=== PATIENT | male | born 1975 | race American Indian/Alaskan Native ===

== ENCOUNTER 2024-06-23 05:49 | Emergency (ER) | payer MEDICAID, SELFPAY ==
[2024-06-23 05:49] VITALS: BMI 38.0
[2024-06-23 05:56] VITALS: BP 172/95; PULSE 83; RESP 18; TEMP 37.1; O2SAT 96
--- NOTE | 2024-06-23 06:21 | XR_ITS ---
Examination: Lumbar spine 3 views Technique one AP lateral coned lateral lower lumbar spine 3 views 7): June 23, 2024 0624 hours INDICATIONS: Onset back pain today. FINDINGS: Adequate alignment lumbar vertebral bodies on the lateral view No lumbar fracture Moderate to advanced degenerative disc disease L5-S1 IMPRESSION: Moderate to advanced degenerative disc disease L5-S1
[2024-06-23] MEDS: HYDROcodone/APAP 5/325 TABLET 1 TAB PO (06:37)
[2024-06-23] MEDS: CYCLObenzaPRINE 5 MG TABLET PO (06:37)
--- NOTE | 2024-06-23 07:52 | PD.EDLOWEX ---
Lower Extremity Injury RME/HPI General Chief Complaint: Extremity Injury, Lower Stated Complaint: RIGHT LEG PAIN X1DAY Time Seen by Provider: 06/23/24 06:07 Source: patient Arrival date/time: 06/23/24 0600 This is a 49-year-old male with end-stage renal failure who presents to the emergency department with complaints of right sciatic type pain radiating down to his right leg. He reports yesterday he was doing normal chores at home and felt a pinch in his back and today woke up with pain right lower hip radiating down his leg. Patient did not attempt any interventions or take any OTC medications prior to ED visit. Patient denies any other associated symptoms or aggravating factors. No modifying factors, no radiation, no migration. Patient reports he had to have his dialysis today however missed it due to his pain. Denies any bowel or bladder dysfunction Mode of arrival: ambulatory Limitations: no limitations Related Data Home Medications ?Medication ?Instructions ?Recorded ?Confirmed flash glucose sensor (FreeStyle 04/09/23 04/09/23 Joselyn 2 Sensor kit) insulin syringe-needle U-100 0.3 04/09/23 04/09/23 mL 31 gauge x 15/64 (Droplet Insulin Syringe) semaglutide 0.25 mg or 0.5 mg (2 mg subcut 04/09/23 mg/1.5 mL) subcutaneous pen injector Previous Rx's ?Medication ?Instructions ?Recorded atorvastatin 80 mg tablet 80 mg PO QPM #30 tabs 04/13/23 hydrocodone 7.5 mg-acetaminophen 1 tab PO Q8H PRN pain #10 tabs 06/23/24 325 mg tablet Allergies Allergy/AdvReac Type Severity Reaction Status Date / Time No Known Allergies Allergy Verified 12/19/23 00:39 Review of Systems Review of Systems Systems Reviewed: All systems reviewed, normal except as documented Narrative Review of Systems: Gen: No fever, no chills, no weight loss EYES: No discharge, no visual changes, no pain HEENT: No ear pain, no congestion, no sore throat PULM: No shortness of breath, no cough, no congestion CV: No chest pain, no dyspnea on exertion, no palpitations GI: No nausea, no vomiting, no diarrhea, no pain, no constipation : No frequency, no urgency, no dysuria Musc/skel: No joint pain, back pain radiating to glue right leg Skin: No rash Psyc: No hallucinations, no depression Heme/Lymph: No easy bleeding or bruising tendencies Neuro: No weakness, no headache ED Exam Narrative Physical exam: 49-year-old male appears to be in pain General Limitations: Present no limitations General appearance: Present alert and in no apparent distress Head Head exam: Present atraumatic Eye Eye exam: Present normal appearance, PERRL and EOMI ENT ENT exam: Present normal exam, normal oropharynx and mucous membranes moist Neck Neck exam: Present normal inspection, full ROM and trachea midline Chest Chest inspection: Present normal inspection and symmetric chest wall rise Respiratory Respiratory exam: Present normal lung sounds bilaterally Cardiovascular Cardiovascular exam: Present regular rate, normal rhythm and normal heart sounds Abdominal Exam Abdominal exam: Present soft, normal bowel sounds and other (Negative CVA tenderness); Absent distention or tenderness Extremities Exam Extremities exam: Present normal inspection and full ROM Back Exam Back exam: Present full ROM, muscle spasm, paraspinal tenderness and sciatic notch tenderness (R); Absent CVA tenderness (R) or CVA tenderness (L) Neurological Exam Neurological exam: Present alert, oriented X3 and CN II-XII intact Psychiatric Psychiatric exam: Present normal affect and normal mood Skin Skin exam: Present warm, dry, intact and normal color Course Quality Measures none Orders Category Date Time Status XR hip RT w pelvis 2-3V Stat Exams 06/23/24 09:04 Completed XR lumbar spine 2-3V Stat Exams 06/23/24 06:21 Completed CYCLObenzaPRINE [Flexeril] Med 06/23/24 06:23 Discontinued 5 mg PO X1 ONE HYDROcodone*/APAP 5/325 [Left Hand 5/325] Med 06/23/24 06:22 Discontinued 1 tab PO X1 ONE Lidocaine 5% Patch Med 06/23/24 08:21 Discontinued 1 patch TOP X1 ONE MethylPREDNISolone.* [SoluMEDROL Inj] Med 06/23/24 08:09 Discontinued 125 mg IM X1 ONE Vital Signs Vital signs: Vital Signs Temperature 98.8 F 06/23/24 05:56 Pulse Rate 83 06/23/24 05:56 Respiratory Rate 18 06/23/24 05:56 Blood Pressure 172/95 H 06/23/24 05:56 Pulse Oximetry (%) 96 06/23/24 05:56 Oxygen Delivery Method Room Air 06/23/24 05:56 Extremity Injury, Lower MDM Narrative MDM Narrative:: This is a 49-year-old male who presents to the emergency department what appears as a lumbar back strain. Patient appears to be mild distress due to pain, cocktail medication was ordered . And lumbar x-ray. Lumbar x-ray did demonstrate advanced degenerative disc disease. HIp xray- right hip bursitis. No fever, weakness, abdominal pain, saddle anesthesia, bowel/bladder incontinence noted. No hx of IVDA. Gait and sensation intact. No signs of emergent pathology at this time. Low suspicion for emergent etiology such as epidural abscess or spinal cord compression/cauda equina. Strictly advised patient that he will need to follow-up with his PCP most likely physical therapy or MRI. Strictly advised to return to the emergency department if there is any worsening symptoms or change in condition as discussed Advised to continue his dialysis center session today. Patient data External records reviewed:: [facility] previous records Clinical information provided by:: patient Social determinants that could affect healthcare access:: none Patient has the following chronic illnesses:: Hemodialysis hypertension diabetes How is presenting disease/condition affected by chronic disease/condition?: no chronic disease Evaluation data The following diagnostics were reviewed and interpreted by me:: radiology exam(s) Lab and/or radiology exams considered but not ordered:: Considered other imaging. Interpretation Summary: Examination: Lumbar spine 3 views Technique one AP lateral coned lateral lower lumbar spine 3 views 7): June 23, 2024 0624 hours INDICATIONS: Onset back pain today. FINDINGS: Adequate alignment lumbar vertebral bodies on the lateral view No lumbar fracture Moderate to advanced degenerative disc disease L5-S1 IMPRESSION: Moderate to advanced degenerative disc disease L5-S1 Examination:Right hip AP, lateral, AP pelvis 3 views Technique: Hip AP lateral, AP pelvis, 3 views Exam date and time:June 23, 2024 0918 hrs. Indications: Onset right hip pain today Findings: Mild bilateral hip osteoarthritis No right hip fracture or dislocation Greater trochanteric bursitis right hip Bones of the pelvis left hip intact Impression: Mild bilateral hip osteoarthritis Greater trochanteric bursitis right hip. Medications / Prescriptions Medications or Prescriptions considered but not ordered:: No Medication administrations:: Medication Administration History Discontinued Medications Hydrocodone Bitart/Acetaminophen (Hydrocodone/Apap 5/325 Tablet) 1 tab PO X1 ONE Stop: 06/23/24 06:23 Last Admin: 06/23/24 06:37 Dose: 1 tab Documented By: VERONICA Cyclobenzaprine HCl (Cyclobenzaprine 5 Mg Tablet) 5 mg PO X1 ONE Stop: 06/23/24 06:24 Last Admin: 06/23/24 06:37 Dose: 5 mg Documented By: VERONICA Lidocaine (Lidocaine 5% 1 Patch) 1 patch TOP X1 ONE Stop: 06/23/24 08:22 Last Admin: 06/23/24 08:40 Dose: 1 patch Documented By: HANNAH Methylprednisolone Sodium Succinate (Methylprednisolone Sod Succ 62.5 Mg/Ml 2ml Vial) 125 mg IM X1 ONE Stop: 06/23/24 08:10 Last Admin: 06/23/24 08:14 Dose: 125 mg Documented By: HANNAH All medications administered and effective Consultations Consultation(s) initiated? (list below): No Diagnosis Extremity Injury, Lower Differential Diagnosis: other (Hip fracture, lumbar strain, sciatica, lumbar radiculopathy) Most likely diagnosis given after review of the tests above:: Lumbar radiculopathy Admission Indicated Admission indicated?: not indicated Admission Request Was there a request for admission?: No Disposition Plan Disposition Plan: Discharge Discharge Attestation Discharge Attestation: The patient and all family members were given an opportunity to ask questions and understood the discharge instructions. Discharge instructions specifically effects, indications for sooner follow up or return to the emergency department, and the expected course of current diagnosis. Patient condition: Stable Discharge Plan Plan Patient Disposition: HOME (Self Care) Prescriptions/Referrals Prescriptions/Med Rec: New hydrocodone-acetaminophen 7.5-325 mg tablet 1 tab PO Q8H MDD 3 PRN (Reason: pain) Qty: 10 0RF No Action (DME) insulin syringe-needle U-100 [Droplet Insulin Syringe] 0.3 mL 31 gauge x 15/64 syringe Patient Comments: use WITH LANTUS (DME) FreeStyle Joselyn 2 Sensor Kit Patient Comments: POINT OF CARE BLOOD GLUCOSE 4 TIMES A DAY semaglutide 0.25 mg or 0.5 mg(2 mg/1.5 mL) pen injector SUBCUT Patient Comments: inject 0.25 milligrams subcutaneously every week atorvastatin 80 mg tablet 80 mg PO QPM Qty: 30 0RF Referrals: Clint([facility]),Tan, LIVESTOCK BROKER [Primary Care Provider] - In 1 week Problem List Clinical Impression: Degenerative disc disease, lumbar, Greater trochanteric bursitis of right hip Patient/Caregiver Discharge Instructions Discharge Activity: activity as tolerated Education Materials: Understanding Trochanteric Bursitis, ED Bursitis, ED Degenerative Disk Disease Additional Instructions: You have been diagnosed with hip bursitis, which is the inflammation of the bursa?a small fluid-filled sac that cushions and reduces friction in your hip joint. X-ray also demonstrates mild degenerative disc disease. You will need to follow-up with your primary doctor 2 days. Please keep your appointments with dialysis per I did send a couple Left Hand's for pain relief. Might need physical therapy, MRI for further evaluation. Print Language: Moroccan Stand Alone Forms: Bridgette Award Info., Patient Portal Info Letter PA/LIVESTOCK BROKER Supervising Physician PA/SHANNA Supervising Physician: Dr. Perez
[2024-06-23] MEDS: MethylPREDNISolone SOD SUCC 62.5 MG/ML 2ML VIAL 125 MG IM (08:14)
[2024-06-23] MEDS: LIDOCAINE 5% 1 PATCH TOP (08:40)
--- NOTE | 2024-06-23 09:04 | XR_ITS ---
Examination:Right hip AP, lateral, AP pelvis 3 views Technique: Hip AP lateral, AP pelvis, 3 views Exam date and time:June 23, 2024 0918 hrs. Indications: Onset right hip pain today Findings: Mild bilateral hip osteoarthritis No right hip fracture or dislocation Greater trochanteric bursitis right hip Bones of the pelvis left hip intact Impression: Mild bilateral hip osteoarthritis Greater trochanteric bursitis right hip.
== END 2024-06-23 10:18 | disposition home or self-care (01) ==
PROVIDERS: Emergency Provider Emergency Medicine; PCP Nurse Practitioner Family
DX: M51.369 Other intervertebral disc degeneration, lumbar region without mention of lumbar back pain or lower extremity pain (principal); M51.379 Other intervertebral disc degeneration, lumbosacral region without mention of lumbar back pain or lower extremity pain; M70.61 Trochanteric bursitis, right hip
CPT/HCPCS: 72100; 73502; 96372; 99283; J2919; Z7610; A9270

== ENCOUNTER 2024-07-27 12:47 | Emergency (ER) | payer MEDICAID, SELFPAY ==
[2024-07-27 12:50] VITALS: PULSE 98; RESP 16; O2SAT 100
[2024-07-27 12:56] VITALS: BP 146/97; PULSE 93; RESP 17; TEMP 36.6; O2SAT 97
[2024-07-27 12:57] VITALS: BMI 32.5
--- NOTE | 2024-07-27 13:07 | EKG_ITS ---
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
--- NOTE | 2024-07-27 13:07 | XR_ITS ---
Examination: AP chest single view Technique one AP portable upright chest single view Exam date and time: July 27, 2024 1311 hrs. Comparison April 07, 2023 Indications: Onset chest pain today. Findings: Right subclavian dialysis catheter tips SVC satisfactory position Normal heart size No lobar pneumonia or pulmonary edema Moderate osteopenia Impression: No lobar pneumonia or pulmonary edema
[2024-07-27 13:20] VITALS: PULSE 91
[2024-07-27] MEDS: Aspirin 325 MG TABLET PO (13:44)
[2024-07-27 13:46] LABS: Basophils % (Auto) 0 % (0-2.5); Eosinophils # (Auto) 0.3 Thou/mm3 (0.0-0.5); Eosinophils % (Auto) 3 % (0-10); Hematocrit 35.3 % (41.0-53.0); Hemoglobin 11.7 g/dL (13.5-16.0); Immature Granulocytes % (Auto) 1 % (0-0); Immature Granulocytes Auto 0.11 Thou/mm3 (0.00-0.00); Lymphocytes # (Auto) 2.1 Thou/mm3 (1.0-4.8); Lymphocytes % (Auto) 17 % (10-50); Mean Corpuscular HGB Conc 33.1 g/dl (31.0-37.0); Mean Corpuscular Hemoglobin 31.3 pg (25.0-35.0); Mean Corpuscular Volume 94 fL (80-100); Monocytes # (Auto) 0.8 Thou/mm3 (0.0-0.8); Monocytes % (Auto) 7 % (0-12); Neutrophils # (Auto) 8.9 Thou/mm3 (1.8-7.7); Neutrophils % (Auto) 73 % (37-80); Nucleated Red Blood Cell % 0 /100 WBC (0); Platelet Count 161 Thou/mm3 (140-440); RDW Standard Deviation 43.2 fL (35.1-43.9); Red Blood Count 3.74 Miln/mm3 (4.50-5.90); White Blood Count 12.3 Thou/mm3 (3.8-10.6)
[2024-07-27 13:56] LABS: Prothrombin Time 10.8 Seconds (9.0-12.2)
[2024-07-27 14:02] LABS: Alanine Aminotransferase 11 U/L (10-49); Albumin, Serum 4.3 gm/dL (3.5-5.0); Albumin/Globulin Ratio 1.4 (1.2-2.2); Alkaline Phosphatase 101 U/L (46-116); Anion Gap 10 (7-16); Aspartate Amino Transferase 12 U/L (0-34); BUN/Creatinine Ratio 6 Ratio (12-20); Bilirubin,Total 0.2 mg/dL (0.3-1.2); Blood Urea Nitrogen 54 mg/dL (9-23); Calcium 9.6 mg/dL (8.3-10.6); Calcium (Corrected) 9.6 mg/dL (8.5-10.1); Carbon Dioxide 26.5 mMol/L (20.0-31.0); Chloride 104 mMol/L (98-107); Creatinine (Component) 9.4 mg/dL (0.6-1.3); Globulin 3.1 gm/dL (2.3-3.5); Glucose 109 mg/dL (74-106); Lipase 41 U/L (12-53); Magnesium 2.4 mg/dL (1.6-2.6); Osmolality,Calculated 295 (275-295); Potassium 4.2 mMol/L (3.4-5.1); Sodium 140 mMol/L (136-145); Total Protein 7.4 gm/dL (5.7-8.2); Troponin I < 0.020 ng/mL (0.0-0.045); eGFR 6 See Note
[2024-07-27 14:22] LABS: B-Type Natriuretic Peptide 31 pg/mL (0-100)
--- NOTE | 2024-07-27 14:28 | PD.EDCHEST ---
ED Chest Pain RME/HPI General Chief Complaint: Chest Pain Stated Complaint: CHEST PAIN Time Seen by Provider: 07/27/24 13:13 Source: patient Arrival date/time: 07/27/24 12:47 49-year-old male history of ESRD-hemodialysis, hypertension, controlled diabetes, chronic lumbar degenerative disc disease presents to the emergency department via EMS for complaints of chest pain that began this morning. Patient reports he was driving his car when he began to have some mid sternum chest pain. Reports his pain is aggravated with deep inspiration tender to palpation. He reports he had his normal dialysis session yesterday without complications. Patient did not attempt any interventions or take any OTC medications prior to ED visit. Patient denies any other associated symptoms or aggravating factors. No modifying factors, no radiation, no migration. No nausea no vomiting no diaphoresis. Mode of arrival: ambulatory Limitations: no limitations Related Data Home Medications ?Medication ?Instructions ?Recorded ?Confirmed flash glucose sensor (FreeStyle 04/09/23 04/09/23 Joselyn 2 Sensor kit) insulin syringe-needle U-100 0.3 04/09/23 04/09/23 mL 31 gauge x 15/64 (Droplet Insulin Syringe) semaglutide 0.25 mg or 0.5 mg (2 mg subcut 04/09/23 mg/1.5 mL) subcutaneous pen injector Previous Rx's ?Medication ?Instructions ?Recorded atorvastatin 80 mg tablet 80 mg PO QPM #30 tabs 04/13/23 hydrocodone 7.5 mg-acetaminophen 1 tab PO Q8H PRN pain #10 tabs 06/23/24 325 mg tablet Allergies Allergy/AdvReac Type Severity Reaction Status Date / Time No Known Allergies Allergy Verified 12/19/23 00:39 Review of Systems Review of Systems Systems Reviewed: All systems reviewed, normal except as documented Narrative Review of Systems: Gen: No fever, no chills, no weight loss EYES: No discharge, no visual changes, no pain HEENT: No ear pain, no congestion, no sore throat PULM: No shortness of breath, no cough, no congestion CV:++ chest pain, no dyspnea on exertion, no palpitations GI: No nausea, no vomiting, no diarrhea, no pain, no constipation : No frequency, no urgency, no dysuria Musc/skel: No joint pain, no back pain Skin: No rash Psyc: No hallucinations, no depression Heme/Lymph: No easy bleeding or bruising tendencies Neuro: No weakness, no headache ED Exam General Limitations: Present no limitations General appearance: Present alert and in no apparent distress Head Head exam: Present atraumatic Eye Eye exam: Present normal appearance, PERRL and EOMI ENT ENT exam: Present normal exam, normal oropharynx and mucous membranes moist Neck Neck exam: Present normal inspection, full ROM and trachea midline Chest Chest inspection: Present normal inspection and symmetric chest wall rise Respiratory Respiratory exam: Present normal lung sounds bilaterally Cardiovascular Cardiovascular exam: Present regular rate, normal rhythm and normal heart sounds Abdominal Exam Abdominal exam: Present soft and normal bowel sounds Extremities Exam Extremities exam: Present normal inspection and full ROM Back Exam Back exam: Present normal inspection and full ROM Neurological Exam Neurological exam: Present alert, oriented X3 and CN II-XII intact Psychiatric Psychiatric exam: Present normal affect and normal mood Skin Skin exam: Present warm, dry, intact and normal color Course Quality Measures none Orders Category Date Time Status Machine Operator Replanter STAT Care 07/27/24 13:07 Completed EKG (ED ONLY) *Do not use* NOW Care 07/27/24 13:07 Completed EKG (ED ONLY) *Do not use* NOW Care 07/27/24 15:52 Completed Insert IV STAT Care 07/27/24 13:07 Completed EKG (ED Only) Stat Exams 07/27/24 13:07 Draft EKG (ED Only) Stat Exams 07/27/24 15:52 Draft XR chest 1V portable Stat Exams 07/27/24 13:07 Completed B-Type Natriuretic Peptide Stat Lab 07/27/24 13:35 Completed CBC Stat Lab 07/27/24 13:35 Completed Comprehensive Metabolic Panel Stat Lab 07/27/24 13:35 Completed Lipase Stat Lab 07/27/24 13:35 Completed Magnesium Stat Lab 07/27/24 13:35 Completed Prothrombin Time with INR Stat Lab 07/27/24 13:35 Completed Troponin I Stat Lab 07/27/24 13:35 Completed Troponin I Stat Lab 07/27/24 16:56 Completed Acetaminophen Tab [Tylenol ES Tab] Med 07/27/24 18:08 Discontinued 1,000 mg PO X1 ONE Aspirin Med 07/27/24 13:23 Discontinued 325 mg PO X1 ONE Lidocaine 2% Viscous [Xylocaine 2% Viscous] Med 07/27/24 18:08 Discontinued 15 ml PO X1 ONE amLODIPine BESYLATE [Norvasc] Med 07/27/24 15:52 Discontinued 5 mg PO X1 ONE mg Hyd/Al Hyd/Fatmata Susp [Maalox Susp] Med 07/27/24 18:08 Discontinued 30 ml PO X1 ONE Vital Signs Vital signs: Vital Signs Temperature 97.9 F 07/27/24 12:56 Pulse Rate 93 07/27/24 12:56 Respiratory Rate 17 07/27/24 12:56 Blood Pressure 146/97 H 07/27/24 12:56 Pulse Oximetry (%) 97 07/27/24 12:56 Oxygen Delivery Method Room Air 07/27/24 12:56 Chest Pain MDM Narrative MDM Narrative:: Patient presents to the emergency room today for chest pain doubt ACS/VT given no ST changes on EKG, no associated diaphoresis no associated vomiting and chest pain is not exertional in nature. Chest pain is more associated with movement. Doubt pneumothorax doubt pneumonia given normal chest x-ray patient is stable for discharge home. Patient to follow-up with PMD in 2 days. Strict return to ED precautions given. Patient verbalized understanding. Patient data External records reviewed:: [facility] previous records Clinical information provided by:: patient Social determinants that could affect healthcare access:: none Patient has the following chronic illnesses:: Hypertension, end-stage renal failure on dialysis, diabetes How is presenting disease/condition affected by chronic disease/condition?: uneffected by Evaluation data The following diagnostics were reviewed and interpreted by me:: lab results, radiology exam(s) and EKG tracing(s) Lab and/or radiology exams considered but not ordered:: No Interpretation Summary: Examination: AP chest single view Technique one AP portable upright chest single view Exam date and time: July 27, 2024 1311 hrs. Comparison April 07, 2023 Indications: Onset chest pain today. Findings: Right subclavian dialysis catheter tips SVC satisfactory position Normal heart size No lobar pneumonia or pulmonary edema Moderate osteopenia Impression: No lobar pneumonia or pulmonary edema Medications / Prescriptions Medications or Prescriptions considered but not ordered:: No Medication administrations:: Medication Administration History Discontinued Medications Acetaminophen (Acetaminophen 500 Mg Tablet) 1,000 mg PO X1 ONE Stop: 07/27/24 18:09 Last Admin: 07/27/24 18:30 Dose: 1,000 mg Documented By: DB Al Hydrox/Mg Hydrox/Simethicone (Mg Hyd/Al Hyd/Fatmata (Maalox Reg) Susp 30 Ml Udc) 30 ml PO X1 ONE Stop: 07/27/24 18:09 Last Admin: 07/27/24 18:43 Dose: Not Given Documented By: ALENA Non-Admin Reason: Cancelled by Provider Amlodipine Besylate (Amlodipine Besylate 5 Mg Tablet) 5 mg PO X1 ONE Stop: 07/27/24 15:53 Last Admin: 07/27/24 15:57 Dose: 5 mg Documented By: ALENA Aspirin (Aspirin 325 Mg Tablet) 325 mg PO X1 ONE Stop: 07/27/24 13:24 Last Admin: 07/27/24 13:44 Dose: 325 mg Documented By: ALKA Lidocaine HCl (Lidocaine Viscous 2% 15 Ml Udc) 15 ml PO X1 ONE Stop: 07/27/24 18:09 Last Admin: 07/27/24 18:30 Dose: 15 ml Documented By: ALENA All medications administered and effective Consultations Consultation(s) initiated? (list below): No Diagnosis Chest Pain Differential Diagnosis: fracture of rib, pneumothorax, stable angina, unstable angina pectoris, atypical chest pain, st elevation myocardial infarction, costochondritis and chest pain Most likely diagnosis given after review of the tests above:: Atypical Admission Indicated Admission indicated?: not indicated Admission Request Was there a request for admission?: No Disposition Plan Disposition Plan: Discharge Discharge Attestation Discharge Attestation: The patient and all family members were given an opportunity to ask questions and understood the discharge instructions. Discharge instructions specifically effects, indications for sooner follow up or return to the emergency department, and the expected course of current diagnosis. Patient condition: Stable Discharge Plan Plan Patient Disposition: HOME (Self Care) Prescriptions/Referrals Prescriptions/Med Rec: No Action (DME) insulin syringe-needle U-100 [Droplet Insulin Syringe] 0.3 mL 31 gauge x 15/64 syringe Patient Comments: use WITH LANTUS (DME) FreeStyle Joselyn 2 Sensor Kit Patient Comments: POINT OF CARE BLOOD GLUCOSE 4 TIMES A DAY semaglutide 0.25 mg or 0.5 mg(2 mg/1.5 mL) pen injector SUBCUT Patient Comments: inject 0.25 milligrams subcutaneously every week atorvastatin 80 mg tablet 80 mg PO QPM Qty: 30 0RF hydrocodone-acetaminophen 7.5-325 mg tablet 1 tab PO Q8H MDD 3 PRN (Reason: pain) Qty: 10 0RF Referrals: No Primary/Family,Physician [Primary Care Provider] - In 1 week Problem List Clinical Impression: Atypical chest pain Patient/Caregiver Discharge Instructions Discharge Activity: activity as tolerated Education Materials: ED Chest Pain, Uncertain Cause Additional Instructions: Please make sure you follow-up with your primary doctor keep your cardiology referral. If you have any changes in your condition please return to the emergency department as soon as possible. Print Language: Algerian Stand Alone Forms: Bridgette Award Info., Patient Portal Info Letter PA/EDGE BASTER Supervising Physician PA/EDGE BASTER Supervising Physician: Dr. Perez
--- NOTE | 2024-07-27 15:52 | EKG_ITS ---
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
[2024-07-27 15:57] VITALS: BP 152/105; PULSE 78
[2024-07-27] MEDS: amLODIPine BESYLATE 5 MG TABLET PO (15:57)
[2024-07-27 16:16] VITALS: BP 139/90; PULSE 81; RESP 15; TEMP 36.4; O2SAT 97
[2024-07-27 17:49] LABS: Troponin I < 0.020 ng/mL (0.0-0.045)
[2024-07-27] MEDS: ACETAMINOPHEN 500 MG TABLET 1000 MG PO (18:30)
[2024-07-27] MEDS: LIDOCAINE VISCOUS 2% 15 ML UDC PO (18:30)
[2024-07-27 18:36] VITALS: BP 166/106; PULSE 87; RESP 16; TEMP 36.7; O2SAT 99
== END 2024-07-27 18:39 | disposition home or self-care (01) ==
PROVIDERS: Nurse Practitioner Primary Care; Emergency Provider Emergency Medicine
DX: R07.89 Other chest pain (principal); E11.22 Type 2 diabetes mellitus with diabetic chronic kidney disease; I12.0 Hypertensive chronic kidney disease with stage 5 chronic kidney disease or end stage renal disease; N18.6 End stage renal disease; Z99.2 Dependence on renal dialysis
CPT/HCPCS: 36415; 71045; 80053; 83690; 83735; 83880; 84484; 85025; 85610; 93005; 99283; J3490; A9270

== ENCOUNTER 2024-09-23 12:47 | Emergency (ER) | payer MEDICAID, SELFPAY ==
[2024-09-23 13:25] VITALS: BP 135/89; PULSE 91; RESP 20; TEMP 37.1; O2SAT 95
--- NOTE | 2024-09-23 13:41 | XR_ITS ---
Examination: Right elbow 3 views Technique: Elbow AP, oblique, lateral 3 views Exam date and time: September 23, 2024 1449 hours INDICATIONS: Elbow pain beginning one week ago. FINDINGS: Mild elbow osteoarthritis No fracture or dislocation, no elbow effusion Calcification in the distribution of the common flexor and common extensor tendons IMPRESSION: Bilateral elbow epicondylitis, consider elective MRI elbow without contrast follow-up
--- NOTE | 2024-09-23 13:41 | XR_ITS ---
Examination: Duplex scan of the upper extremity, unilateral right complete Date and time of exam: September 23, 2024 1350 hours INDICATIONS: Right arm swelling and numbness beginning last week Technique: Duplex scan of the extremity veins using B-mode/grayscale imaging and Doppler spectral analysis and color flow Attention is directed to internal echogenicity, compression and augmentation involving these veins, color flow assessment, spectral analysis Findings: Positive for nonocclusive thrombus in the cephalic vein, a superficial vein Negative for deep vein thrombus IMPRESSION: Negative for deep vein thrombus Nonocclusive thrombus in the superficial right cephalic vein
--- NOTE | 2024-09-23 13:42 | PD.EDRME ---
Rapid Medical Screening Exam E Arrival date/time: 09/23/24 12:47 This is a 49-year-old male that comes in with complaints of right elbow pain and right arm swelling that is been going on for the past 2 days. Patient states that yesterday after dialysis he felt weak but started to get pain to his right arm. Today he noticed that there is swelling to his right arm. Patient is having a hard time bending his right elbow. Patient has a history of end-stage renal disease on dialysis, hyperlipidemia, diabetes. I have greeted and performed a focused initial assessment of this patient. Initial appropriate labs ordered at this time. A comprehensive ED assessment and evaluation of the patient and analysis of all test and completion of medical decision making process will be conducted by additional ED provider. Chief Complaint: Extremity Injury, Upper Time Seen by Provider: 09/23/24 13:07 Vital signs: Vital Signs Temperature 98.8 F 09/23/24 13:25 Pulse Rate 91 09/23/24 13:25 Respiratory Rate 20 09/23/24 13:25 Blood Pressure 135/89 H 09/23/24 13:25 Pulse Oximetry (%) 95 09/23/24 13:25 Oxygen Delivery Method Room Air 09/23/24 13:25
[2024-09-23 14:31] LABS: Basophils % (Auto) 0 % (0-2.5); Eosinophils # (Auto) 0.4 Thou/mm3 (0.0-0.5); Eosinophils % (Auto) 4 % (0-10); Hematocrit 42.8 % (41.0-53.0); Immature Granulocytes % (Auto) 1 % (0-0); Immature Granulocytes Auto 0.06 Thou/mm3 (0.00-0.00); Lymphocytes # (Auto) 2.3 Thou/mm3 (1.0-4.8); Lymphocytes % (Auto) 23 % (10-50); Mean Corpuscular HGB Conc 32.7 g/dl (31.0-37.0); Mean Corpuscular Hemoglobin 31.3 pg (25.0-35.0); Mean Corpuscular Volume 96 fL (80-100); Monocytes # (Auto) 0.7 Thou/mm3 (0.0-0.8); Monocytes % (Auto) 7 % (0-12); Neutrophils # (Auto) 6.8 Thou/mm3 (1.8-7.7); Neutrophils % (Auto) 66 % (37-80); Nucleated Red Blood Cell % 0 /100 WBC (0); Platelet Count 141 Thou/mm3 (140-440); RDW Standard Deviation 46.4 fL (35.1-43.9); Red Blood Count 4.47 Miln/mm3 (4.50-5.90); White Blood Count 10.3 Thou/mm3 (3.8-10.6)
[2024-09-23 14:43] LABS: Prothrombin Time 11.3 Seconds (9.0-12.2)
--- NOTE | 2024-09-23 14:57 | PC.NURSE ---
PATIENT IN ROOM WITH COMPLAINT OF PAIN TO RIGHT ARM, PATIENT STATES HE HAS HAD PAIN TO ELBOW NO INJURY OR TRAUMA. PATIENT STATES HE HAS BEEN UNABLE TO MAKE FIST AND NOT ABLE TO HOLD OBJECTS DUE TO PAIN.
[2024-09-23 14:59] LABS: Alanine Aminotransferase 10 U/L (10-49); Albumin, Serum 4.6 gm/dL (3.5-5.0); Albumin/Globulin Ratio 1.4 (1.2-2.2); Alkaline Phosphatase 84 U/L (46-116); Anion Gap 13 (7-16); Aspartate Amino Transferase 12 U/L (0-34); BUN/Creatinine Ratio 5 Ratio (12-20); Bilirubin,Total 0.3 mg/dL (0.3-1.2); Blood Urea Nitrogen 59 mg/dL (9-23); C-Reactive Protein 1.5 mg/dL (0.0-0.9); Carbon Dioxide 24.2 mMol/L (20.0-31.0); Chloride 104 mMol/L (98-107); Globulin 3.2 gm/dL (2.3-3.5); Glucose 133 mg/dL (74-106); Osmolality,Calculated 299 (275-295); Potassium 5.1 mMol/L (3.4-5.1); Sodium 141 mMol/L (136-145); Total Protein 7.8 gm/dL (5.7-8.2); eGFR 5 See Note
[2024-09-23 15:00] VITALS: BP 143/108; PULSE 81; RESP 18; TEMP 36.6; O2SAT 97
--- NOTE | 2024-09-23 15:15 | EDNOTE_ITS ---
Upper Extremity Injury RME/HPI General Chief Complaint: Extremity Injury, Upper Stated Complaint: R) ARM SWELLING, PAIN, NUMBNESS GRADUALLY X 1 WK Time Seen by Provider: 09/23/24 13:07 Arrival date/time: 09/23/24 12:47 RME / HPI RME / HPI narrative: 09/23/24 12:47 This is a 49-year-old male that comes in with complaints of right elbow pain and right arm swelling that is been going on for the past 2 days. Patient states that yesterday after dialysis he felt weak but started to get pain to his right arm. Today he noticed that there is swelling to his right arm. Patient is having a hard time bending his right elbow. Patient has a history of end-stage renal disease on dialysis, hyperlipidemia, diabetes. I have greeted and performed a focused initial assessment of this patient. Initial appropriate labs ordered at this time. A comprehensive ED assessment and evaluation of the patient and analysis of all test and completion of medical decision making process will be conducted by additional ED provider. DR. BASILIO MAIN ED EVALUATION: 49 year old male presents to the Emergency Department with complaint of right arm pain and swelling onset 2 days. No radiation. Pain is described as aching. Patient has his dialysis done yesterday. Associated symptoms include numbness and tingling of the fingers of the right arm. No shortness of breath. No chest pain. Related Data Home Medications ?Medication ?Instructions ?Recorded ?Confirmed flash glucose sensor (FreeStyle 04/09/23 04/09/23 Joselyn 2 Sensor kit) insulin syringe-needle U-100 0.3 04/09/23 04/09/23 mL 31 gauge x 15/64 (Droplet Insulin Syringe) semaglutide 0.25 mg or 0.5 mg (2 mg subcut 04/09/23 mg/1.5 mL) subcutaneous pen injector Previous Rx's ?Medication ?Instructions ?Recorded atorvastatin 80 mg tablet 80 mg PO QPM #30 tabs hydrocodone 7.5 mg-acetaminophen 1 tab PO Q8H PRN pain #10 tabs 06/23/24 325 mg tablet Allergies Allergy/AdvReac Type Severity Reaction Status Date / Time No Known Allergies Allergy Verified 09/23/24 12:52 Review of Systems Review of Systems Systems Reviewed: All systems reviewed, normal except as documented Narrative Review of Systems: GEN: No fever, no chills, no weight loss EYES: No discharge, no visual changes, no pain HEENT: No ear pain, no congestion, no sore throat PULM: No shortness of breath, no cough, no congestion CV: No chest pain, no dyspnea on exertion, no palpitations GI: No nausea, no vomiting, no diarrhea, no pain, no constipation : No frequency, no urgency and no dysuria MUSC/SKEL: + right arm pain and swelling, no back pain SKIN: No rash PSYCH: No hallucinations, no depression HEME/LYMPH: No easy bleeding or bruising tendencies NEURO: No weakness, no headache, + numbness and tingling of the fingers of the right arm Past Medical History Past Medical History CARDIAC: Positive Hypertension and Hypotension GENITOURINARY: Positive Renal Disease and Dialysis OTHER HISTORY: Positive Blood Transfusions Social History SMOKING STATUS: Current some day smoker SUBSTANCE USE: does not use ALCOHOL: Never ED Exam Narrative Physical exam: GENERAL APPEARANCE: alert and oriented x 4, well-developed, well-nourished, no acute distress VITALS: All vitals were reviewed and the pulse ox is 97% on room air, which is normal according to my interpretation. HEENT: Normocephalic, atraumatic; pupils equal, round, reactive to light; EOMI; mucous membranes pink, moist; oropharynx clear NECK: Supple LUNGS: CTABL; no wheezes, no rales, no rhonchi HEART: Regular rate, regular rhythm; normal S1, S2; no murmurs ABDOMEN: non distended; normal BS; soft, no tenderness, no guarding, no rebound; no masses, no organomegaly, no hernia BACK: no CVA tenderness EXTREMITIES: atraumatic; + right arm edema NEUROLOGIC: awake; alert and oriented x4; cranial nerves II-XII grossly intact; no focal sensory or motor deficits PSYCHIATRIC: appropriate mood and affect SKIN: warm, dry, normal color; no rashes Course Quality Measures none Orders Category Date Time Status US venous doppler UE RT Stat Exams 09/23/24 13:41 Completed XR elbow comp RT min 3V Stat Exams 09/23/24 13:41 Completed CBC Stat Lab 09/23/24 14:23 Completed CRP [C-Reactive Protein] Stat Lab 09/23/24 14:23 Completed Comprehensive Metabolic Panel Stat Lab 09/23/24 14:23 Completed PT [Prothrombin Time with INR] Stat Lab 09/23/24 14:23 Completed Vital Signs Vital signs: Vital Signs Temperature 98.8 F 09/23/24 13:25 Pulse Rate 91 09/23/24 13:25 Respiratory Rate 20 09/23/24 13:25 Blood Pressure 135/89 H 09/23/24 13:25 Pulse Oximetry (%) 95 09/23/24 13:25 Oxygen Delivery Method Room Air 09/23/24 13:25 Procedures -ED Smoking Cessation Time Spent Discussing Smoking Cessation w/Patient (min): 3 Patient Acknowledges Need for Cessation: Yes Additional Comments: The patient was counseled as to the multiple risks to their health from continued use of tobacco products. It was explained that continuing to smoke may lead to multiple short and director long term care negative health consequences, including but not limited to mouth/esophageal/lung cancer, COPD, and heart disease. The patient states they understand these risks, and also understand the options and resources available to them to help them stop smoking. Nicotine replacement therapy, local hotlines, and local resources were discussed as viable options for helping them stop their tobacco use. The total time spent counseling the patient regarding tobacco cessation was 3 minutes. Extremity Injury MDM Narrative MDM Narrative:: IMoon, am scribing for and in the presence of Dr. Basilio. Patient data External records reviewed:: [facility] previous records (Reviewed last ED visit dated 07/27/24, discharged with the following: Atypical chest pain) Clinical information provided by:: patient Social determinants that could affect healthcare access:: other (specify) (current smoker) Patient has the following chronic illnesses:: hypertension, diabetes, end-stage renal disease on Tuesday How is presenting disease/condition affected by chronic disease/condition?: unef fected by Evaluation data The following diagnostics were reviewed and interpreted by me:: lab results and radiology exam(s) Lab and/or radiology exams considered but not ordered:: none Interpretation Summary: Procedure(s): US venous doppler UE RT Accession Number(s): [id number] cc: Brennon Massey MD; Malinda Naidu NP~ Examination: Duplex scan of the upper extremity, unilateral right complete Date and time of exam: September 23, 2024 1350 hours INDICATIONS: Right arm swelling and numbness beginning last week Technique: Duplex scan of the extremity veins using B-mode/grayscale imaging and Doppler spectral analysis and color flow Attention is directed to internal echogenicity, compression and augmentation involving these veins, color flow assessment, spectral analysis Findings: Positive for nonocclusive thrombus in the cephalic vein, a superficial vein Negative for deep vein thrombus IMPRESSION: Negative for deep vein thrombus Nonocclusive thrombus in the superficial right cephalic vein Dictated By: Brennon Massey MD Procedure(s): XR elbow comp RT min 3V Accession Number(s): [id number] cc: Brennon Massey MD; Malinda Naidu NP~ Examination: Right elbow 3 views Technique: Elbow AP, oblique, lateral 3 views Exam date and time: September 23, 2024 1449 hours INDICATIONS: Elbow pain beginning one week ago. FINDINGS: Mild elbow osteoarthritis No fracture or dislocation, no elbow effusion Calcification in the distribution of the common flexor and common extensor tendons IMPRESSION: Bilateral elbow epicondylitis, consider elective MRI elbow without contrast follow-up Dictated By: Brennon Massey MD Medications / Prescriptions Medications or Prescriptions considered but not ordered:: none Medication administrations:: see above if any Consultations Consultation(s) initiated? (list below): Yes Consultation #1 (Physician, Specialty, Details): Discussed test HPI, PMHx, lab, radiology results and/or management with Dr. Walters. Following their recommendations; cold and warm compresses and patient to follow with Dr. Walters tomorrow as an outpatient. Time: 17:30 Diagnosis Upper Extremity Injury Differential Diagnosis: fracture of humerus and other (DVT, cellulitis) Most likely diagnosis given after review of the tests above:: Non-occlusive thrombus Blood clot in arm Admission Indicated Admission indicated?: not indicated Admission Request Was there a request for admission?: No Disposition Plan Disposition Plan: Discharge Discharge Attestation Discharge Attestation: The patient and all family members were given an opportunity to ask questions and understood the discharge instructions. Discharge instructions specifically effects, indications for sooner follow up or return to the emergency department, and the expected course of current diagnosis. Patient condition: Stable Discharge Plan Plan Patient Disposition: HOME (Self Care) Prescriptions/Referrals Prescriptions/Med Rec: No Action (DME) insulin syringe-needle U-100 [Droplet Insulin Syringe] 0.3 mL 31 gauge x 15/64 syringe Patient Comments: use WITH [employer] (DME) One [employer] Joselyn 2 Sensor Kit Patient Comments: POINT OF CARE BLOOD GLUCOSE 4 TIMES A DAY semaglutide 0.25 mg or 0.5 mg(2 mg/1.5 mL) pen injector SUBCUT Patient Comments: inject 0.25 milligrams subcutaneously every week atorvastatin 80 mg tablet 80 mg PO QPM Qty: 30 0RF hydrocodone-acetaminophen 7.5-325 mg tablet 1 tab PO Q8H MDD 3 PRN (Reason: pain) Qty: 10 0RF Referrals: No Primary/Family,Physician [Primary Care Provider] - In 1 week Problem List Clinical Impression: Non-occlusive thrombus, Blood clot in arm Patient/Caregiver Discharge Instructions Education Materials: ED Thrombophlebitis, Superficial Print Language: Khmer Stand Alone Forms: Bridgette Award Info., Patient Portal Info Letter
[2024-09-23 17:04] VITALS: BP 123/85; PULSE 83; RESP 12; TEMP 36.5; O2SAT 97
--- NOTE | 2024-09-23 18:00 | PC.NURSE ---
ASKED DR EARLY IF PT IS GOING TO BE BE PRESCIBED ELIQUIS FOR HIS BLOOD CLOT. PER DR EARLY PT DOES NOT NEED ELIQUIS RX BECAUSE CLOT IN NON OCCLUSIVE
== END 2024-09-23 18:18 | disposition home or self-care (01) ==
PROVIDERS: Nurse Practitioner Family; Emergency Provider Emergency Medicine
DX: I82.611 Acute embolism and thrombosis of superficial veins of right upper extremity (principal); E11.22 Type 2 diabetes mellitus with diabetic chronic kidney disease; I12.0 Hypertensive chronic kidney disease with stage 5 chronic kidney disease or end stage renal disease; N18.6 End stage renal disease; Z99.2 Dependence on renal dialysis; E78.5 Hyperlipidemia, unspecified
CPT/HCPCS: 36415; 73080; 80053; 85025; 85610; 86140; 93971; 99284